=== PATIENT | female | born 1965 | race Caucasian/White ===

== ENCOUNTER 2017-07-19 18:58 | Emergency (ER) | END 2017-07-20 00:42 | disposition home or self-care (01) ==

== ENCOUNTER 2017-10-07 11:52 | Emergency (ER) | END 2017-10-07 18:23 | disposition home or self-care (01) ==

== ENCOUNTER 2017-10-13 20:09 | Emergency (ER) | END 2017-10-14 01:12 | disposition home or self-care (01) ==